=== PATIENT | female | born 1980 ===

== ENCOUNTER 2016-10-27 10:43 | Day surgery (SDC) | payer OTHER ==
[2016-10-27 11:06] VITALS: BMI 39.9
--- NOTE | 2016-10-27 11:39 | CP.SDSHP ---
Same Day Surgery H & P - History Proposed Procedure: colonoscopy - Previous Medical/Surgical History Previous Surgical History: hysterectomy - Allergies Allergies: Allergies No Known Allergies Allergy (Verified 10/27/16 11:05) - Date & Time Date: 10/27/16 Time: 11:39 Short Stay Discharge - Short Stay Discharge Admitting Diagnosis/Reason for Visit: CHANGE IN BOWEL HABITS Disposition: HOME/ ROUTINE
[2016-10-27] MEDS ORDERED: Propofol 10 mg/ml Inj (20 ML) ONE (13:09)
[2016-10-27] MEDS ORDERED: Midazolam 2 MG/2 ML VIAL ONE (13:09)
[2016-10-27 13:45] VITALS: TEMP 98.1
[2016-10-27 13:48] VITALS: O2SAT 100
[2016-10-27 14:21] VITALS: BP 117/80; PULSE 87; RESP 20
== END 2016-10-27 14:30 | disposition home or self-care (01) ==
LOC: C.ENDO 10:43
PROVIDERS: ATTEND Colon & Rectal Surgery
DX: R19.4 Change in bowel habit (principal); K64.8 Other hemorrhoids; K57.90 Diverticulosis of intestine, part unspecified, without perforation or abscess without bleeding
CPT/HCPCS: 45378; J2001; J2250; J2704